=== PATIENT | female | born 1990 | race Caucasian/White ===

== ENCOUNTER 2018-10-25 08:11 | Day surgery (SDC) | payer OTHER ==
[2018-10-25] MEDS ORDERED: MIDAZOLAM 1 MG/ML 2 ML INJ (09:23)
[2018-10-25] MEDS ORDERED: LIDOCAINE 2% (SDV) 5 ML INJ (09:23)
[2018-10-25] MEDS ORDERED: PROPOFOL 20 ML ×2 (09:23→10:27)
== END 2018-10-25 16:30 | disposition home or self-care (01) ==
LOC: GIL 08:11
DX: K44.9 Diaphragmatic hernia without obstruction or gangrene (principal); K21.9 Gastro-esophageal reflux disease without esophagitis; K29.60 Other gastritis without bleeding; R10.10 Upper abdominal pain, unspecified; F41.9 Anxiety disorder, unspecified; E66.9 Obesity, unspecified; Z68.33 Body mass index [BMI] 33.0-33.9, adult
CPT/HCPCS: 43239; 84703; 88305; 88312